=== PATIENT | female | born 1945 | race Caucasian/White ===

== ENCOUNTER 2017-06-20 15:44 | Emergency (ER) | payer MEDICARE ==
[2017-06-20] MEDS ORDERED: Sodium Chloride 0.9% 1000 ML 1,000 ML IV STA (16:09)
--- NOTE | 2017-06-20 16:14 | ERPHSYRPT ---
- History of Present Illness Time Seen by Provider: 06/20/17 16:02 Source: patient Exam Limitations: no limitations Patient Subjective Stated Complaint: Pt states "I ache aand I think I have the flu" Triage Nursing Assessment: PT alert and oriented X 3, skin pwd. pt ambulates slowly, able to speak in clear full sentences. Physician History: 71 y/o female with history of lung cancer currently on chemo and RT comes to the ER with complaints of cough, runny nose, sore throat and muscle aches that started 2 days ago. Pt also admits to chills, but denies any fever, shortness of breath, chest pain or dizziness. Pt has not taken any meds OTC. In the ER, no fever. Timing/Duration: yesterday Cough Quality/Degree: mild Allergies/Adverse Reactions: codeine Adverse Reaction (Intermediate, Verified 06/25/16 16:13) makes her crazy lorazepam [From Ativan] Adverse Reaction (Intermediate, Verified 06/25/16 16:13) see things that are not there Penicillins Adverse Reaction (Intermediate, Verified 06/25/16 16:13) rash prednisone Adverse Reaction (Intermediate, Verified 06/25/16 16:13) "makes crazy" Sulfa (Sulfonamide Antibiotics) Adverse Reaction (Intermediate, Verified 16:13) makes her crazy Home Medications: Aspirin 81 gm Chew [Baby Aspirin 81 mg Chew] 81 mg PO DAILY 04/17/13 [ History] Diazepam 5 mg [Valium 5 MG] 5 mg PO QID 04/17/13 [History] Hydrochlorothiazide 25 mg [hydroDIURIL 25 MG] 12.5 mg PO DAILY 04/17/13 [ History] Hx Tetanus, Diphtheria Vaccination/Date Given: No Hx Influenza Vaccination/Date Given: No Hx Pneumococcal Vaccination/Date Given: No Immunizations Up to Date: Yes - Review of Systems Constitutional: Chills, Weakness, No Fever Eyes: No Symptoms Ears, Nose, & Throat: No Symptoms, Sinus Drainage, Throat Pain Respiratory: Cough, No Dyspnea Cardiac: No Chest Pain, No Edema, No Syncope Abdominal/Gastrointestinal: No Abdominal Pain, No Nausea, No Vomiting, No Diarrhea Genitourinary Symptoms: No Dysuria, No Frequency, No Hematuria Musculoskeletal: Myalgias, No Back Pain, No Neck Pain Skin: No Rash Neurological: No Dizziness, No Focal Weakness, No Sensory Changes Psychological: No Symptoms Endocrine: No Symptoms All Other Systems: Reviewed and Negative - Past Medical History Pertinent Past Medical History: Yes Neurological History: No Pertinent History ENT History: Cataracts Cardiac History: Arrhythmia, Hypertension Respiratory History: No Pertinent History Endocrine Medical History: No Pertinent History Musculoskeletal History: No Pertinent History GI Medical History: No Pertinent History History: No Pertinent History Psycho-Social History: Anxiety, Other Female Reproductive Disorders: No Pertinent History Other Medical History: OCD - Past Surgical History Past Surgical History: Yes Neuro Surgical History: No Pertinent History Cardiac: No Pertinent History Respiratory: No Pertinent History Gastrointestinal: Cholecystectomy Female Surgical History: Section, Other Other Surgical History: ,GALLBLADDER - Social History Smoking Status: Former smoker Exposure to second hand smoke: No Drug Use: none Patient Lives Alone: No - Female History Hx Last Menstrual Period: none Hx Now: No - Nursing Vital Signs Nursing Vital Signs: Initial Vital Signs Temperature 98.5 F 06/20/17 16:06 Pulse Rate 66 06/20/17 16:06 Respiratory Rate 16 06/20/17 16:06 Blood Pressure 176/76 06/20/17 16:06 O2 Sat by Pulse Oximetry 99 06/20/17 16:06 Pain Scale Pain Intensity 2 - Physical Exam General Appearance: no apparent distress, alert Eye Exam: PERRL/EOMI, eyes nml inspection Ears, Nose, Throat Exam: normal ENT inspection, TMs normal, pharynx normal, moist mucous membranes Neck Exam: normal inspection, non-tender, supple, full range of motion Respiratory Exam: normal breath sounds, lungs clear, No respiratory distress Cardiovascular Exam: regular rate/rhythm, normal heart sounds Gastrointestinal/Abdomen Exam: soft, No tenderness Back Exam: normal inspection, No CVA tenderness, No vertebral tenderness Extremity Exam: normal inspection, normal range of motion Neurologic Exam: alert, oriented x 3, cooperative, normal mood/affect, sensation nml, No motor deficits Skin Exam: normal color, warm, dry, No rash Lymphatic Exam: No adenopathy SpO2: 99 Oxygen Delivery: Nasal Cannula - Course Nursing assessment & vital signs reviewed: Yes Ordered Tests: Active Orders 24 hr Category Date Time Status School Counsellor STAT Care 06/20/17 16:10 Active IV Insertion STAT Care 06/20/17 16:09 Active cath [Cath for Specimen-Straight] STAT Care 06/20/17 17:23 Active CHEST 1 VIEW (PORTABLE) Stat Exams 06/20/17 16:10 Completed BLOOD CULTURE Stat Lab 06/20/17 16:32 Received CBC W DIFF Stat Lab 06/20/17 16:30 Completed CMP Stat Lab 06/20/17 16:30 Completed Manual Differential NC Stat Lab 06/20/17 16:30 Completed UA W/RFX UR CULTURE Stat Lab 06/20/17 16:09 Completed Medication Summary Discontinued Medications Generic Name Dose Route Start Last Admin Trade Name Ge PRN Reason Stop Dose Admin Sodium Chloride 1,000 mls @ 999 mls/hr 06/20/17 16:09 06/20/17 16:23 Sodium Chloride 0.9% 1000 Ml IV 06/20/17 17:09 999 mls/hr .Q1H1M STA Administration Sodium Chloride Confirm 06/20/17 16:15 Sodium Chloride 0.9% 1000 Ml Administered 06/20/17 16:16 Dose 1,000 mls @ ud .ROUTE .[facility] Lab/Rad Data: Laboratory Result Diagrams 06/20/17 16:30 06/20/17 16:30 Laboratory Results 06/20/17 06/20/17 06/20/17 Range/Units 16:30 16:30 16:30 WBC 1.2 L* (4.0-10.5) K/mm3 RBC 3.09 L (4.1-5.4) M/mm3 Hgb 9.0 L (12.0-16.0) gm/dl Hct 28.6 L (35-47) % MCV 92.6 (78-100) fl MCH 29.1 (26-32) pg MCHC 31.5 L (32-36) g/dl RDW 14.0 (11.5-14.0) % Plt Count 236 (150-450) K/mm3 MPV 10.1 H (6-9.5) fl Segmented Neutrophils 43 (36.0-66.0) % Band Neutrophils 3 H (0.0-2.0) % Lymphocytes (Manual) 46 H (24-44) % Monocytes (Manual) 3 (0.0-12.0) % Eosinophils (Manual) 5 H (0.00-3.0) % Differential Comment NORMAL Platelet Estimate NORMAL (NORMAL) Polychromasia 1+ Sodium 138 (136-145) mEq/L Potassium 3.9 (3.5-5.1) mEq/L Chloride 102 (98-107) mEq/L Carbon Dioxide 33.1 H (21-32) mEq/L Anion Gap 7.2 (5-15) MEQ/L BUN 11 (9-20) mg/dL Creatinine 1.04 (0.55-1.30) mg/dl Estimated GFR 55 ML/MIN Glucose 103 (70-110) MG/DL Calcium 8.7 (8.5-10.1) mg/dL Total Bilirubin 0.20 (0.2-1.0) mg/dL AST 22 (15-37) U/L ALT 20 (12-78) U/L Alkaline Phosphatase 59 (46-116) U/L Serum Total Protein 6.7 (6.4-8.2) gm/dL Albumin 3.3 L (3.4-5.0) g/dL Ur Collection Type Urine Color (YELLOW) Urine Appearance (CLEAR) Urine pH (5-6) Ur Specific [place] (1.005-1.025) Urine Protein (Negative) Urine Ketones (NEGATIVE) Urine Blood (0-5) Marko/ul Urine Nitrite (NEGATIVE) Urine Bilirubin (NEGATIVE) Urine Urobilinogen (0-1) mg/dL Ur Leukocyte Esterase (NEGATIVE) Urine Culture Reflexed (NO) Urine Glucose (NEGATIVE) mg/dL Influenza Type A Ag NEGATIVE (NEGATIVE) Influenza Type B Ag NEGATIVE (NEGATIVE) RSV (PCR) NEGATIVE (Negative) Specimen Received 06/20/17 Range/Units 16:09 WBC (4.0-10.5) K/mm3 RBC (4.1-5.4) M/mm3 Hgb (12.0-16.0) gm/dl Hct (35-47) % MCV (78-100) fl MCH (26-32) pg MCHC (32-36) g/dl RDW (11.5-14.0) % Plt Count (150-450) K/mm3 MPV (6-9.5) fl Segmented Neutrophils (36.0-66.0) % Band Neutrophils (0.0-2.0) % Lymphocytes (Manual) (24-44) % Monocytes (Manual) (0.0-12.0) % Eosinophils (Manual) (0.00-3.0) % Differential Comment Platelet Estimate (NORMAL) Polychromasia Sodium (136-145) mEq/L Potassium (3.5-5.1) mEq/L Chloride (98-107) mEq/L Carbon Dioxide (21-32) mEq/L Anion Gap (5-15) MEQ/L BUN (9-20) mg/dL Creatinine (0.55-1.30) mg/dl Estimated GFR ML/MIN Glucose (70-110) MG/DL Calcium (8.5-10.1) mg/dL Total Bilirubin (0.2-1.0) mg/dL AST (15-37) U/L ALT (12-78) U/L Alkaline Phosphatase (46-116) U/L Serum Total Protein (6.4-8.2) gm/dL Albumin (3.4-5.0) g/dL Ur Collection Type CCMS Urine Color YELLOW (YELLOW) Urine Appearance CLEAR (CLEAR) Urine pH 8.0 (5-6) Ur Specific [place] 1.005 (1.005-1.025) Urine Protein NEGATIVE (Negative) Urine Ketones NEGATIVE (NEGATIVE) Urine Blood NEGATIVE (0-5) Marko/ul Urine Nitrite NEGATIVE (NEGATIVE) Urine Bilirubin NEGATIVE (NEGATIVE) Urine Urobilinogen NORMAL (0-1) mg/dL Ur Leukocyte Esterase NEGATIVE (NEGATIVE) Urine Culture Reflexed NO (NO) Urine Glucose NEGATIVE (NEGATIVE) mg/dL Influenza Type A Ag (NEGATIVE) Influenza Type B Ag (NEGATIVE) RSV (PCR) (Negative) Specimen Received 06-20-17 1730 - Progress Progress: improved Progress Note: 06/20/17 18:27 Pt feels better after receiving NS fluids. The white count is 1.2 but ANC is normal. The influenza, CXR and UA are within normal limits. Pt is able to ambulate with minimal difficulty with a cane. I spoke to Dr Smith, oncologist, to make him aware of the patient. The patient was advised to return to the ER if she should have fever, chills, weakness. - Departure Time of Disposition: 18:30 Departure Disposition: Home Clinical Impression: Weakness Condition: Stable Critical Care Time: Yes Critical Care Time(excluding separately billable procedures): 75-104 minutes Referrals: RADHA RUFFIN MD [Primary Care Provider] - Instructions: Muscle Weakness Additional Instructions: Return to the ER if you should have worsening weakness, unable to ambulate, fever, chills, cough or shortness of breath.
[2017-06-20] MEDS ORDERED: Sodium Chloride 0.9% 1000 ML 1,000 ML ONE (16:15)
--- NOTE | 2017-06-20 16:42 | XRAY ---
Indication: Cough. Comparison: June 25, 2016. Portable chest demonstrates CT proven left perihilar mass slightly larger today with stable left upper lobe mass. Remaining lungs clear. Heart is not enlarged. Bony thorax intact again with mild osteopenia and degenerative changes.
[2017-06-20 16:57] LABS: Mean Cell Volume 92.6 fl (78-100); Mean Corpuscular Hemoglobin 29.1 pg (26-32); Mean Platelet Volume 10.1 fl (6-9.5); Platelet Count 236 K/mm3 (150-450); Red Blood Count 3.09 M/mm3 (4.1-5.4)
[2017-06-20 16:58] LABS: ALBUMIN 3.3 g/dL (3.4-5.0); ANION GAP 7.2 MEQ/L (5-15); BILIRUBIN,TOTAL 0.2 mg/dL (0.2-1.0); Carbon Dioxide 33.1 mEq/L (21-32); Potassium 3.9 mEq/L (3.5-5.1); Total Protein 6.7 gm/dL (6.4-8.2)
[2017-06-20 17:02] LABS: White Blood Count 1.2 K/mm3 (4.0-10.5)
[2017-06-20 17:32] LABS: BAND 3 % (0.0-2.0); Eosinophil 5 % (0.00-3.0); Polychromasia 1+; Total Cells Counted 100
[2017-06-20 17:33] LABS: Platelet Estimate NORMAL (NORMAL)
[2017-06-20 17:37] LABS: ADD URINE CULTURE? NO (NO); Bilirubin NEGATIVE (NEGATIVE); Blood NEGATIVE Ery/ul (0-5); COMPLETE URINE MICROSCOPIC? NO; Collection Type CCMS; Glucose NEGATIVE (NEGATIVE); Leukocyte Esterase NEGATIVE (NEGATIVE)
[2017-06-20 19:01] VITALS: BP 117/56; PULSE 88; O2SAT 98
== END 2017-06-20 19:01 | disposition home or self-care (01) ==
LOC: ED 15:44
DX: R53.1 Weakness (principal); C34.90 Malignant neoplasm of unspecified part of unspecified bronchus or lung; Z79.899 Other long term (current) drug therapy; J02.9 Acute pharyngitis, unspecified; R09.89 Other specified symptoms and signs involving the circulatory and respiratory systems; I10 Essential (primary) hypertension
CPT/HCPCS: 93041; 36000; 87040; 81002; 36415; 85025; 80053; 87631; 71010; P9612; 96360; 99285

== ENCOUNTER 2018-09-11 07:31 | Emergency (ER) | payer MEDICARE | END 2018-09-11 10:06 | disposition home or self-care (01) | LOC: ED 07:31 ==

== ENCOUNTER 2021-03-05 19:09 | Emergency (ER) | payer MEDICARE ==
[2021-03-05 19:22] VITALS: BP 95/54; PULSE 76; O2SAT 100
--- NOTE | 2021-03-05 19:49 | ERPHSYRPT ---
- History of Present Illness Time Seen by Provider: 03/05/21 19:15 Source: patient Exam Limitations: no limitations Patient Subjective Stated Complaint: "I fell last in the bathroom at the long-term and my foot never got checked". Triage Nursing Assessment: pt fell last in the bathroom at the long-term and was supposed to have her foot checked and xray there but it had never happened. They xray'd it today and said I had fractures and needed to come to the hospital. Rt foot and rt lower ext has 4+ pitting edema, red in color from cellulitis. It is tender to touch with palpation. Good pedal pulses present. Pt c/o pain to mid rt lower leg and ankle. Physician History: 75 years old female with multiple medical problems including lung cancer currently on chemotherapy resident of long-term received her chemo last week making her weak all over, was having difficulty getting up from commode, twisted her right ankle and fell last week almost 4 days ago. Since then she is having constant moderate intensity sharp pain especially with movements and pressure with associated increasing swelling of right lower extremity. No tingling or numbness in the toes she has baseline swelling in both ankle and feet. Today she had x-rays done which showed bimalleolar fracture with no dislocation. She is sent in here for further evaluation. She denies any pain in the knee area. No injury anywhere else. Did not hit her head. Method of Injury: fell, twisted Occurred: last week Quality: constant Severity of Pain-Max: moderate Severity of Pain-Current: moderate Lower Extremities Pain: leg: right, ankle: right Modifying Factors: Improves With: immobilization. Worsens With: movement Associated Symptoms: unable to bear weight Allergies/Adverse Reactions: cefaclor [From Ceclor] Allergy (Verified 03/05/21 19:35) nitrofurantoin [From Macrobid] Allergy (Verified 03/05/21 19:35) NSAIDS (Non-Steroidal Anti-Inflamma Allergy (Verified 03/05/21 19:35) codeine Adverse Reaction (Intermediate, Verified 03/05/21 19:35) makes her crazy lorazepam [From Ativan] Adverse Reaction (Intermediate, Verified 03/05/21 19:35) see things that are not there Penicillins Adverse Reaction (Intermediate, Verified 03/05/21 19:35) rash prednisone Adverse Reaction (Intermediate, Verified 03/05/21 19:35) "makes crazy" Sulfa (Sulfonamide Antibiotics) Adverse Reaction (Intermediate, Verified 03/05/21 19:35) makes her crazy Home Medications: Aspirin 81 gm Chew [Baby Aspirin 81 mg Chew] 81 mg PO DAILY 04/17/13 [History] Hydrochlorothiazide 25 mg [hydroDIURIL 25 MG] 12.5 mg PO DAILY 04/17/13 [History] Benzonatate [Tessalon Perle] 100 mg PO BID 09/11/18 [History] Bisacodyl [Laxative Suppository] 10 mg RC DAILY 09/11/18 [History] Furosemide 40 mg [Lasix 40 MG] 40 mg PO DAILY 09/11/18 [History] Hydrocodone/APAP 5-325 Tab^^^ [Ivor 5-325 Tablet^^^] 1 tab PO Q6HPRN PRN MDD 6 09/11/18 [History] Morphine Sulfate [Morphine Sulfate ER] 20 mg PO Q3H/PRN PRN 09/11/18 [History] Prochlorperazine Maleate 10 mg [Compazine 10 mg] 10 mg PO Q6HPRN PRN 09/11/18 [History] Hx Tetanus, Diphtheria Vaccination/Date Given: Yes Hx Influenza Vaccination/Date Given: No Hx Pneumococcal Vaccination/Date Given: Yes Immunizations Up to Date: Yes Travel Risk - International Travel Have you traveled outside of the country in past 3 weeks: No - Coronavirus Screening Are you exhibiting any of the following symptoms?: No - Vaccine Status Have you recieved a Covid-19 vaccination: Yes Forestry Farm Laborer: Unknown - Vaccination Dates Dates if Unknown: unknown Comment: unable to find on pt's long-term record but she says she had it - Review of Systems Constitutional: No Symptoms Ears, Nose, & Throat: No Symptoms Respiratory: Cough, Dyspnea Cardiac: Edema Abdominal/Gastrointestinal: No Symptoms Genitourinary Symptoms: No Symptoms Musculoskeletal: Arthralgias, Injury, Joint Redness, Joint Pain, Joint Swelling Skin: No Symptoms Neurological: No Symptoms Endocrine: No Symptoms Hematologic/Lymphatic: No Symptoms - Past Medical History Pertinent Past Medical History: Yes Neurological History: No Pertinent History ENT History: Cataracts Cardiac History: Arrhythmia, Hypertension Respiratory History: No Pertinent History Endocrine Medical History: No Pertinent History Musculoskeletal History: No Pertinent History GI Medical History: No Pertinent History History: No Pertinent History Psycho-Social History: Anxiety, Other Female Reproductive Disorders: No Pertinent History Other Medical History: OCD, a-fib, lung cancer - Past Surgical History Past Surgical History: Yes Neuro Surgical History: No Pertinent History Cardiac: No Pertinent History Respiratory: No Pertinent History Gastrointestinal: Cholecystectomy Female Surgical History: Section, Other Other Surgical History: ,GALLBLADDER - Social History Smoking Status: Former smoker Exposure to second hand smoke: No Drug Use: none Patient Lives Alone: No (ECF) - Female History Hx Now: No - Nursing Vital Signs Nursing Vital Signs: Initial Vital Signs Temperature 97.9 F 03/05/21 19:21 Pulse Rate 76 03/05/21 19:21 Respiratory Rate 18 03/05/21 19:21 Blood Pressure 95/54 03/05/21 19:21 O2 Sat by Pulse Oximetry 100 03/05/21 19:21 Pain Scale Pain Intensity 5 - Physical Exam General Appearance: no apparent distress, alert Eyes, Ears, Nose, Throat Exam: normal ENT inspection Neck Exam: normal inspection Cardiovascular/Respiratory Exam: normal breath sounds, regular rate/rhythm Gastrointestinal/Abdominal Exam: non-tender Back Exam: normal inspection, normal range of motion Knees Exam: bilateral knee: non-tender, normal inspection, normal range of motion, no evidence of injury Ankle Exam: right ankle: bone tenderness (Bimalleolar), limited range of motion, pain, soft tissue tenderness, left ankle: non-tender, normal range of motion, no evidence of injury, bilateral ankle: swelling (Bilateral 2+ pitting edema) Foot Exam: bilateral foot: non-tender, normal inspection, normal range of motion, no evidence of injury Neuro/Tendon Exam: normal sensation, normal motor functions Mental Status Exam: alert, oriented x 3, cooperative Skin Exam: normal color SpO2 Interpretation: normal SpO2: 100 O2 Delivery: Room Air Ordered Tests: Active Orders 24 hr Category Date Time Status LOWER LEG Stat Exams 03/05/21 20:17 Taken - Progress Progress: unchanged Progress Note: 03/05/21 She is offered pain medication which she refused. Her x-ray report from [facility] bimalleolar fracture. I have obtained right leg which did not show any fibular fracture in the proximal. She is placed in posterior splint. Nonweightbearing and outpatient podiatry/orthopedic follow-up. Counseled pt/family regarding: diagnosis, need for follow-up, rad results - Departure Departure Disposition: Home Clinical Impression: Ankle fracture Qualifiers: Encounter type: initial encounter Fracture type: closed Laterality: right Qualified Code(s): S82.891A - Other fracture of right lower leg, initial encounter for closed fracture Condition: Stable Critical Care Time: No Referrals: RADHA RUFFIN MD [Primary Care Provider] - Follow Up with PCP/3 days ELEAZAR AUSTIN DPM [ACTIVE STAFF] - (Call tomorrow for reevaluation) Instructions: Ankle Fracture (DC) Additional Instructions: No weightbearing. Tylenol as needed for pain. Keep legs elevated. Apply ice. Follow-up with orthopedic/podiatry for reevaluation tomorrow. Return to ER for excruciating pain, increased swelling or difficulty movements of the ankle.
--- NOTE | 2021-03-06 08:52 | XRAY ---
Indication: Pain following fall. Comparison: None 2 view right lower leg demonstrates nondisplaced bimalleolar fractures with soft tissue swelling. Incidental mild osteopenia and small posterior heel spur. No other bony, articular, or soft tissue abnormalities.
== END 2021-03-05 23:25 ==
LOC: ED 19:09
DX: S82.891A Other fracture of right lower leg, initial encounter for closed fracture (principal); W18.39XS Other fall on same level, sequela
CPT/HCPCS: 73590; 99284

== ENCOUNTER 2021-03-16 06:52 | Inpatient (IN) | payer MEDICARE ==
[2021-03-16] MEDS ORDERED: Lactated Ringers 1,000 ML IV ONE ×2 (07:39→08:18)
[2021-03-16] MEDS ORDERED: CLINDAMYCIN-D5W 900 MG/50 ML*** 900 MG/50 ML BAG IV ONE ×2 (07:39→08:19)
[2021-03-16] MEDS ORDERED: Lactated Ringers 1,000 ML IV SCH (08:30)
[2021-03-16] MEDS ORDERED: CLINDAMYCIN-D5W 900 MG/50 ML*** 900 MG/50 ML BAG IV SCH (09:00)
[2021-03-16] MEDS ORDERED: SUBLIMAZE 100 MCG/2 ML ONE (10:42)
[2021-03-16] MEDS ORDERED: Versed 2 MG/2 ML Injection ONE (10:42)
[2021-03-16] MEDS ORDERED: DIPRIVAN 200 MG/20 ML IV ONE (10:42)
[2021-03-16] MEDS ORDERED: XYLOCAINE 1% HCL 20 ML MDV ONE (10:45)
[2021-03-16] MEDS ORDERED: BUPIVACAINE 0.5% VIAL IJ ONE (10:45)
[2021-03-16] MEDS ORDERED: EPINEPHRINE 1MG/ML AMP ONE (10:50)
[2021-03-16] MEDS ORDERED: Zofran 4 MG/2 ML VIAL ONE (13:15)
--- NOTE | 2021-03-16 13:29 | XRAY ---
Indication: Right ankle ORIF. Intraoperative fluoroscopy provided for 3 minute 5 seconds. 9 digital spot images obtained demonstrating open reduction internal fixation of bimalleolar fracture in good apposition/alignment with intact orthopedic hardware. Correlate with intraoperative findings/report.
--- NOTE | 2021-03-16 14:05 | XRAY ---
3 minutes and 5 seconds fluoroscopy time in surgery for ORIF of the right ankle.
--- NOTE | 2021-03-16 14:36 | PCM.NOTE ---
Podiatry Post-Op Plan Podiatry Post-Op Plan: Podiatry Post-Op Plan Patient is positive postoperative day 0 from right ankle open reduction internal fixation of the bimalleolar fracture as well as syndesmotic reduction. Patient is being held for postoperative pain at this time as well as Covid positive status.Operative report dictated Post-operative plan is as follows:[] ANTIBIOTICS: PO Doxy 100 mg bid x 10 days PAIN CONTROL: [place] 5/325mg q4h moderate pain. Morphine 2 mg q4h severe pain. Discharge with [place] 5/325mg q6h Dispense:28 VTE PROPHYLAXIS: SCD and compression hose to non op leg. Aspirin 325 mg p.o. daily DRESSINGS: Dressing to remain clean and dry. Reinforce with Kerlix/MATT as necessary. ACTIVITY: NWB to operative side. THERAPIES: PT/OT consult for gait training, assistive device training, and assessment of functional status with NWB to the Right. Incentive Spirometry. PLACEMENT: CM consult for evaluation and possible SNF/Rehab placement.Concerns from family of return to [facility]. Discussion with case management in regards to placement to a new facility on discharge if possible.
[2021-03-16 14:48] LABS: Appearance CLEAR (CLEAR); Bilirubin NEGATIVE (NEGATIVE); Blood NEGATIVE Ery/ul (0-5); Glucose NEGATIVE (NEGATIVE); Ketones NEGATIVE (NEGATIVE); Leukocyte Esterase NEGATIVE (NEGATIVE); Mucus SLIGHT /HPF (NEGATIVE); Nitrite NEGATIVE (NEGATIVE); Protein,Urine Dip NEGATIVE (Negative); Specific Gravity 1.014 (1.005-1.025); Urobilinogen NEGATIVE mg/dL (0-1)
[2021-03-16 14:52] LABS: Bacteria NONE SEEN /HPF (NEGATIVE)
[2021-03-16] MEDS ORDERED: NORCO 5/325 MG PO PRN (15:13)
[2021-03-16] MEDS ORDERED: MILK OF MAGNESIA 30 ML PO PRN (15:17)
[2021-03-16] MEDS ORDERED: NON-FORMULARY ITEM (Ondansetron Hcl [Zofran] 4 MG) PO PRN (15:17)
[2021-03-16] MEDS ORDERED: Tums EX 750 MG PO PRN (15:17)
[2021-03-16] MEDS ORDERED: TYLENOL 325 MG PO PRN (15:17)
[2021-03-16] MEDS ORDERED: Miralax Powder 17GM PACKET PO PRN (15:17)
[2021-03-16] MEDS ORDERED: PHENERGAN 25 MG PO PRN (15:17)
[2021-03-16] MEDS ORDERED: ZOFRAN ODT 4 MG PO PRN (15:24)
[2021-03-16] MEDS ORDERED: TUCKS TP SCH (15:30)
--- NOTE | 2021-03-16 15:39 | OP ---
SURGERY DATE/TIME: 03/16/2021 1108 PREOPERATIVE DIAGNOSIS: Bimalleolar ankle fracture right ankle and pain right ankle. POSTOPERATIVE DIAGNOSIS: Bimalleolar ankle fracture right ankle and pain right ankle. PROCEDURE: Open reduction internal fixation of the right ankle bimalleolar fracture with syndesmotic reduction. SURGEON: Addison Campbell DPM. GRADES 9 12 TUTOR: None. ANESTHESIA: Spinal with postoperative local. HEMOSTASIS: Thigh tourniquet set to 250 mm of Mercury for 60 minutes. ESTIMATED BLOOD LOSS: Less than 30 cc. MATERIALS: Arthrex intramedullary fibular nail system with a TightRope system syndesmotic fixation as well as two - 60 mm partially threaded screws, 2.0 Vicryl and skin portillo. INJECTABLES: 20 cc of a 1:1 mixture of 1% lidocaine plain and 0.5% bupivacaine plain injected in a Osmani block-type fashion to the mid incision approach site. INDICATION FOR SURGERY: Cheryl is a very pleasant 75 year-old female who presented to my clinic from [facility] following a fall that had happened several days prior to the incident. The patient reports not remembering the incident quite clearly. However, she was in the bathroom and she fell and she noticed some significant pain to her right ankle. Three days later she was brought into the emergency room and was diagnosed with bimalleolar fracture of the right ankle which was displaced approximately 50%. Due to the unstable nature of the fracture and the fact that the patient is ambulatory and that any normal patient that this would be a surgical issue. The patient is ambulatory at the clinic per health care providers and herself for short distances around the facility itself and for transfers. The patient was advised of the risks and complications of the procedure with surgical intervention versus doing conservative and she wishes to proceed with conservative. However, she has a Power of Baggage [employer] who is her son, Shlomo, who indicated that he would like to proceed with the operation in order to be better improve her function. Discussion with the patient and her son, discussed all risks, benefits and complications of surgical intervention. The patient does have a complicated medical history including lung cancer and cardiovascular disease which could complicate of course with anesthesia. Therefore, I recommended spinal anesthesia and had obtained clearance from her retail parts pro, oncologist as well as cardiovascular specialists to which all agreed the risk is relatively low using this modality. The patient understands the fixation of this fracture is to improve her function and decrease her pain. It is with that she wishes to proceed as does her son, Shlomo, as well as her other son who is Power of Baggage [employer] unfortunately I do not remember his name at this time. It is with that we wished to proceed. DESCRIPTION OF PROCEDURE AND FINDINGS: The patient was brought into the OR and placed on the OR table in the supine position. At this time the anesthesia team performed a spinal anesthesia in order to alleviate the pain as well as decrease muscle tone to the lower extremity while we were working. Mild sedation was administered and the right thigh had a well-padded tourniquet applied and was set to 250 mm of Mercury as indicated with her low blood pressure prior to the procedure. At that time the right lower extremity was prepped and draped in typical sterile fashion and lowered onto the surgical field. At this time, a percutaneous approach was attempted at reducing the fracture. However, there was minimal comminution to reduce the possibility of the fracture being reduced at this time. The decision was made intraoperatively for a mini-open procedure where a 2 cm incision was made over the direct aspect of the fracture. This was identified and held with a pointed reduction forceps. At this time, a K-wire was introduced from distal to proximal at the central aspect of the distal tip of the fibula on lateral and mortise views. This was deemed to be in an adequate position. From this point, the fibula intramedullary nail was introduced and performed as bait painter's specifications with reaming 5 mm from the distal tip of the fracture site and then reaming up the medullary canal of the fibula this was performed without incident and without displacement of the fracture. Following this, the intramedullary nail was performed and talons were deployed grabbing the cortex, the endosteal surface of the bone. At this time, three distal screws were applied in a unicortical type fashion through the nail in order not to violate the joint however be through the nail surface. At this time this was deemed to be adequate and the reduction was almost indistinguishable on fluoroscopy. At this time attention was directed to the medial malleolar fracture which was not displaced. However was apparent at the medial shoulder of the talus this was reduced using two - 60 mm cannulated 4-0 partially threaded screws. At this time this was checked under fluoroscopy. At this time the external rotation force was applied to the foot and an internal force was applied to the tibia stressing the syndesmosis which seemed to gap to some degree by approximately 3 mm. At this time it was deemed appropriate to proceed with the syndesmotic reduction this was performed as bait painter's specifications with the TightRope system which was deployed without issue and adequate tension was applied in order to get compression. Once again at this time external rotation test was performed and no longer gapping was present. At this time, copious amounts of sterile saline were utilized to flush the surgical site. 2-0 Vicryl was utilized to coapt the subcutaneous tissue and staple was utilized the coapt the skin edges. The patient did have some significant edema due to her venous insufficiency which a dressing consisting of Betadine, Adaptic, 4x4 and Padmini was applied to the surgical site. At this time Sara boot was applied to the right lower extremity in order to provide for venous insufficiency relief as well as compression with two Kerlix applied with minimal to moderate compression. A well-padded posterior splint was then applied consisting of Webril, posterior splint, sugar tong, 4 inch and 6 inch MATT. At this time the tourniquet was let down. Total tourniquet time was 60 minutes. The patient was returned to the postoperative anesthesia care unit with vital signs stable and vascular status intact. The patient was tested prior to the procedure and was deemed to be COVID-positive. Therefore she will be held on the COVID wing for control of postoperative pain in the meantime. The patient handled the anesthesia and the procedure without complication. Postoperative orders as indicated in the inpatient and outpatient chart respectively.
[2021-03-16 15:49] LABS: Absolute Neutrophil Ct (ANC) 3.17 (1.4-6.9); BASOPHIL % 0.6 % (0.0-0.4); Basophil (Absolute #) 0.03 (0-0.4); Eosinophil % 2.6 % (0.00-5.0); Eosinophil (Absolute #) 0.13 (0-0.5); Hematocrit 36.3 % (35-47); Lymphocyte (Absolute #) 1.14 (1.0-4.6); Lymphocytes % 22.4 % (24.0-44.0); Mean Cell Volume 96.5 fl (78-100); Mean Corpuscular Hemoglobin 29.3 pg (26-32); Mean Corpuscular Hgb Concent. 30.3 g/dl (32-36); Mean Platelet Volume 9.8 fl (7.5-11.0); Monocyte (Absolute #) 0.61 (0.0-1.3); Neutrophil % 62.4 % (36.0-66.0); Platelet Count 237 K/mm3 (150-450); Red Blood Count 3.76 M/mm3 (4.1-5.4); Red Cell Distribution Width 17.6 % (11.5-14.0); White Blood Count 5.1 K/mm3 (4.0-10.5)
[2021-03-16] MEDS ORDERED: Ativan 1 MG PO PRN (15:55)
[2021-03-16] MEDS: hydroDIURIL 25 MG PO SCH (15:55)
[2021-03-16] MEDS: Valium 5 MG PO SCH ×2 (15:56→21:12)
[2021-03-16] MEDS ORDERED: Ativan 2 MG/1 ML VIAL IV PRN (15:56)
[2021-03-16] MEDS: Imdur 60MG PO SCH (15:56)
[2021-03-16] MEDS: Vibramycin 100 MG PO SCH (15:56)
[2021-03-16] MEDS ORDERED: TYLENOL EXTRA STRENGTH 500 MG PO PRN (15:57)
[2021-03-16] MEDS ORDERED: Zofran 4 MG/2 ML VIAL IV PRN (15:58)
[2021-03-16] MEDS ORDERED: Cyanocobalamin B-12 1000 MCG/ML IJ SCH (16:00)
[2021-03-16 16:04] LABS: ALBUMIN 3.9 g/dL (3.5-5.0); ANION GAP 10.6 MEQ/L (5-15); BILIRUBIN,TOTAL 0.4 mg/dL (0.2-1.3); Calcium 9.2 mg/dL (8.4-10.2); Creatinine 1 0.99 mg/dL (0.52-1.04); EST GLOMERULAR FILTRATION RATE 57.8 ML/MIN; Total Protein 7.1 g/dL (6.3-8.2)
[2021-03-16] MEDS ORDERED: OLUMIANT PO SCH (17:00)
[2021-03-16] MEDS ORDERED: Valium 5 MG PO SCH (17:00)
[2021-03-16] MEDS ORDERED: REMDESIVIR 200 MG in Sodium Chloride 0.9% 250 ML 250 ML IV ONE (17:00)
[2021-03-17 06:25] LABS: Hematocrit 31.1 % (35-47); Hemoglobin 9.3 gm/dl (12.0-16.0); Mean Cell Volume 96.3 fl (78-100); Mean Corpuscular Hemoglobin 28.8 pg (26-32); Mean Corpuscular Hgb Concent. 29.9 g/dl (32-36); Mean Platelet Volume 10.4 fl (7.5-11.0); Platelet Count 229 K/mm3 (150-450); Red Blood Count 3.23 M/mm3 (4.1-5.4); Red Cell Distribution Width 17.6 % (11.5-14.0); White Blood Count 5.7 K/mm3 (4.0-10.5)
[2021-03-17 06:37] LABS: ANION GAP 8.6 MEQ/L (5-15); BLOOD UREA NITROGEN 19 mg/dL (7-17); CHLORIDE 97 mmol/L (98-107); Calcium 8.6 mg/dL (8.4-10.2); Carbon Dioxide 32 mmol/L (22-30); Creatinine 1 0.84 mg/dL (0.52-1.04); EST GLOMERULAR FILTRATION RATE > 60.0 ML/MIN; Glucose 101 mg/dL (74-106); Potassium 4.1 mmol/L (3.5-5.1); SODIUM 133 mmol/L (137-145)
[2021-03-17] MEDS: Valium 5 MG PO SCH ×3 (07:22→16:10)
[2021-03-17] MEDS: ENOXAPARIN SODIUM SQ SCH (09:06)
[2021-03-17] MEDS: Vibramycin 100 MG PO SCH ×2 (09:06→16:10)
[2021-03-17] MEDS: ECOTRIN 81 MG PO SCH (09:06)
[2021-03-17] MEDS: hydroDIURIL 25 MG PO SCH (09:07)
[2021-03-17] MEDS: Imdur 60MG PO SCH (09:08)
[2021-03-17] MEDS ORDERED: [UNRECOGNIZED DRUG - OTHER] TP SCH (10:00)
[2021-03-17] MEDS ORDERED: REMDESIVIR 100 MG in Sodium Chloride 0.9% 100 ML BAG 100 ML IV SCH (17:00)
--- NOTE | 2021-03-17 17:24 | XRAY ---
Indication: Cough. History lung cancer. Negative Covid 19. Comparison: September 11, 2018. Portable chest demonstrates stable CT proven left perihilar mass with new small medial left upper lobe masslike opacity and new mild left lung volume loss. Stable left costophrenic angle blunting. Remaining heart and right lung unremarkable. New left Port-A-Cath without complications. Bony thorax intact again with mild osteopenia and degenerative changes. Impression: Again CT proven left perihilar mass. New medial left upper lobe masslike opacity and left lung volume loss. CT chest with contrast exam may yield further information. Comment: Preliminary interpretation made by [facility]. No critical discrepancy.
[2021-03-18] MEDS: Valium 5 MG PO SCH ×5 (01:23→21:54)
[2021-03-18] MEDS: Imdur 60MG PO SCH (09:28)
[2021-03-18] MEDS: ECOTRIN 81 MG PO SCH (09:28)
[2021-03-18] MEDS: hydroDIURIL 25 MG PO SCH (09:28)
[2021-03-18] MEDS: Vibramycin 100 MG PO SCH ×2 (09:28→16:12)
[2021-03-18] MEDS: ENOXAPARIN SODIUM SQ SCH (09:28)
[2021-03-19] MEDS: Valium 5 MG PO SCH ×2 (04:12→09:50)
[2021-03-19] MEDS: Vibramycin 100 MG PO SCH (08:44)
[2021-03-19] MEDS: ECOTRIN 81 MG PO SCH (09:50)
[2021-03-19] MEDS: hydroDIURIL 25 MG PO SCH (09:50)
[2021-03-19] MEDS: ENOXAPARIN SODIUM SQ SCH (09:50)
[2021-03-19] MEDS: Imdur 60MG PO SCH (09:50)
[2021-03-19 12:46] VITALS: BP 102/50
[2021-03-19 13:12] VITALS: O2SAT 92
[2021-03-19 14:41] VITALS: PULSE 68
--- NOTE | 2021-04-10 14:18 | DS ---
ADMISSION DIAGNOSES: 1) COVID pneumonia. 2) Bimalleolar fracture right. DISCHARGE DIAGNOSES: 1) FALSE POSITIVE COVID TEST. 2) BIMALLEOLAR ANKLE FRACTURE WITH INTERNAL FIXATION BY DR. ELEAZAR DICKERSON. HOSPITAL COURSE: The patient was admitted, taken to surgery. She had COVID test done that came back positive. She had told me that she had both of her COVID shots and that she had actually had COVID eight months before. She had not been feeling bad. She had been at the skilled nursing and waited several days before they brought her in to operate on her ankle. A pleasant 75 year-old white female who just does not look like she has COVID. I did repeat the test and it was negative. We continued her care for her fractured ankle and she is to return to [facility]. She remained afebrile. Oxygen levels were 99. Kept on B12, Valium 5 four times a day, Imdur 60, Mag-Ox. It is my understanding that the second COVID test was negative and I believe that the first one was false positive.
== END 2021-03-19 15:55 | DRG 492 ==
LOC: MED SURG 06:52 → SDC 06:52 → MED SURG 06:53
PROVIDERS: ADMIT Family Medicine; ATTEND Family Medicine
PROC: 0QSJ04Z Reposition Right Fibula with Internal Fixation Device, Open Approach (ICD-10-PCS; principal; 2021-03-16)
PROC: 0SSF0ZZ Reposition Right Ankle Joint, Open Approach (ICD-10-PCS; 2021-03-16)
DX: S82.841A Displaced bimalleolar fracture of right lower leg, initial encounter for closed fracture (principal); G89.18 Other acute postprocedural pain; U07.1 COVID-19; S93.439A Sprain of tibiofibular ligament of unspecified ankle, initial encounter; M25.571 Pain in right ankle and joints of right foot; Z20.822 Contact with and (suspected) exposure to COVID-19; Z79.899 Other long term (current) drug therapy
CPT/HCPCS: 36415; 71045; 73610; 76000; 80048; 80053; 81001; 85025; 85027; 85379; 87086; 94762; U0003; 27814; 27829; 99100; J0171; J1642; J1650; J2250; J2405; J2704; J3010; A9270-GY